=== PATIENT | female | born 1975 | race Two or more races ===

== ENCOUNTER → 2021-01-16 | Emergency (ER) | payer OTHER ==
[~2021-01-16] VITALS: Ht 172.7 cm; Wt 70.3 kg
[~2021-01-16] MED LIST: KETO10TA2 PO; NORFLEX100MG PO
== END | disposition home or self-care (01) ==
LOC: ER 12:02
DX: S00.83XA Contusion of other part of head, initial encounter (principal); G89.11 Acute pain due to trauma; M54.5 Low back pain; M54.2 Cervicalgia; W01.0XXA Fall on same level from slipping, tripping and stumbling without subsequent striking against object, initial encounter; Y93.89 Activity, other specified; Y92.89 Other specified places as the place of occurrence of the external cause; Y99.8 Other external cause status

== ENCOUNTER 2023-12-19 08:02 | Outpatient (CLI) | payer OTHER | END 2023-12-19 08:21 | disposition home or self-care (01) | LOC: TOM 08:02 | DX: R19.5 Other fecal abnormalities (principal); C18.5 Malignant neoplasm of splenic flexure; K57.92 Diverticulitis of intestine, part unspecified, without perforation or abscess without bleeding; K56.609 Unspecified intestinal obstruction, unspecified as to partial versus complete obstruction; K59.00 Constipation, unspecified ==

== ENCOUNTER 2024-08-07 09:06 | Emergency (ER) | payer OTHER ==
[~2024-08-07] VITALS: Ht 165.1 cm; Wt 54.4 kg
[2024-08-07] MEDS ORDERED: CRESTOR40 MG (09:18)
== END 2024-08-07 13:46 | disposition home or self-care (01) ==
LOC: ER 09:08
DX: J02.9 Acute pharyngitis, unspecified (principal); K21.9 Gastro-esophageal reflux disease without esophagitis; B34.9 Viral infection, unspecified; Z20.822 Contact with and (suspected) exposure to COVID-19